=== PATIENT | female | born 1940 | race Caucasian/White ===

== ENCOUNTER 2018-03-23 08:07 | Day surgery (SDC) | payer MEDICARE, OTHER ==
[~2018-03-23] VITALS: Ht 167.6 cm; Wt 79.8 kg
[~2018-03-23 08:07] MED LIST: ADVIL200 MG PO; COZAAR25 MG PO; LIPITOR10 MG PO; MAXZIDE 37.5 MG-1 EA PO
[2018-03-23] MEDS ORDERED: VITAMIN D1000 UNIT PO (08:30)
--- NOTE | 2018-03-23 09:59 | NUR ---
03/23/18 0959 Felisa Leblanc 0953- PT ARRIVES TO PACU, DROWSY. EASILY [place]OU[place] TO VOICE. DENIES ANY PAIN OR NAUSEA. PT INSTANTLY BACK TO SLEEP WHEN NOT TALKING WITH STAFF.
--- NOTE | 2018-03-24 10:03 | OR ---
[facility] [address] [place], [place] [address] Signed DATE OF OPERATION: 03/23/2018 SURGEON: Adithya Jackson MD PREOPERATIVE DIAGNOSIS: History of tubular adenoma of cecum, 2013. POSTOPERATIVE DIAGNOSES: 1. No evidence of recurrent polyps. 2. Diverticulosis of sigmoid and left colon.. PROCEDURE: Total colonoscopy to cecum. ANESTHESIA: Intravenous sedation, fentanyl 100 mcg, Versed 5 mg. INDICATION: This 77-year-old white woman is a patient of Dr. Villar and has history of tubular adenoma resected from the cecum in 2013. She is currently asymptomatic regarding the colon. She has no family history of colon cancer. She is admitted to undergo colonoscopy. She understands the risks of bleeding, infection, and perforation. FINDINGS: The prep was excellent. Complete colonoscopy was undertaken to the cecum without question. There was no sign of recurrent polyp or new polyp. She had numerous diverticula both small and large of the sigmoid and left colon. DESCRIPTION OF PROCEDURE: The patient was brought to the endoscopy suite and placed in lateral decubitus position given intravenous sedation to the point of slurred speech and nystagmus. Digital rectal examination was normal. An Olympus video colonoscope was passed in the rectum and manipulated throughout the colon noting numerous large and small diverticula of the sigmoid and left colon. Scope was ultimately advanced to the cecum without problem. The ileocecal valve and appendiceal orifice were normal. The ileocecal valve showed no sign of abnormality and the cecum had no sign of polyp. The scope was carefully withdrawn from that point and examination throughout was undertaken showing no sign of abnormality other than the diverticula noted at initial passage of the scope. Retroflexed view of the rectum was Electronically Signed By: ADITHYA JACKSON MD 03/24/18 1003 PATIENT NAME: MAGDA PACK OPERATIVE REPORT DATE OF : 40 REPORT #: [id number] PHYSICIAN: ADITHYA JACKSON MD PCP: GUERRERO VILLAR MD REPORT IS CONFIDENTIAL AND NOT TO BE RELEASED WITHOUT AUTHORIZATION [facility] [address] [place], [place] [address] Signed normal. Scope was removed. The patient was taken to the recovery room in good condition. CONCLUDING DIAGNOSIS: Diverticulosis. No evidence of polyps. PLAN: Recommend repeat colonoscopy in 5 years based on previous polyps, sooner if clinically indicated. She will return to the ongoing care of Dr. Villar. Recommend high-fiber diet. MD NIRAJ Garibay/MODL /[id number] cc: Guerrero Villar MD Copies: GUERRERO VILLAR MD ~ Electronically Signed By: ADITHYA JACKSON MD 03/24/18 1003 PATIENT NAME: MAGDA PACK OPERATIVE REPORT DATE OF : 40 REPORT #: [id number] PHYSICIAN: ADITHYA JACKSON MD PCP: GUERRERO VILLAR MD REPORT IS CONFIDENTIAL AND NOT TO BE RELEASED WITHOUT AUTHORIZATION
== END 2018-03-23 10:34 | disposition home or self-care (01) ==
LOC: OPS 08:07 → DS 08:07 → OPS 09:00 → DS 09:00 → OPS 10:34
PROVIDERS: Surgery
PROC: 0DJD8ZZ Inspection of Lower Intestinal Tract, Via Natural or Artificial Opening Endoscopic (ICD-10-PCS; principal; 2018-03-23 09:00)
DX: Z12.11 Encounter for screening for malignant neoplasm of colon (principal); K57.30 Diverticulosis of large intestine without perforation or abscess without bleeding; I10 Essential (primary) hypertension; Z88.2 Allergy status to sulfonamides; Z88.8 Allergy status to other drugs, medicaments and biological substances; Z79.899 Other long term (current) drug therapy; Z86.010 Personal history of colon polyps
CPT/HCPCS: G0105; 99153; G0500; J2250; J3010; J7120

== ENCOUNTER 2020-05-16 07:18 | Emergency (ER) | payer MEDICARE, OTHER ==
[~2020-05-16] VITALS: Ht 167.6 cm; Wt 76.2 kg
[~2020-05-16 07:18] MED LIST changes: +VITAMIN D1000 UNIT PO
[2020-05-16] MEDS ORDERED: SERTRALINE HCL50 MG PO (07:34)
[2020-05-16] MEDS ORDERED: TRIAMTERENE-HC1 EAC3 PO (07:34)
== END 2020-05-16 10:19 | disposition home or self-care (01) ==
LOC: ED 07:18
DX: F32.9 Major depressive disorder, single episode, unspecified (principal); R63.0 Anorexia; G47.00 Insomnia, unspecified; E87.6 Hypokalemia; E83.42 Hypomagnesemia; I10 Essential (primary) hypertension; Z88.2 Allergy status to sulfonamides; Z88.8 Allergy status to other drugs, medicaments and biological substances; Z79.899 Other long term (current) drug therapy
CPT/HCPCS: 80053; 82652; 83735; 85025; 96361; 96374; 99284-25; J7030

== ENCOUNTER 2020-06-11 10:56 | Day surgery (SDC) | payer MEDICARE, OTHER ==
[~2020-06-11] VITALS: Ht 167.6 cm; Wt 77.0 kg
--- NOTE | ~2020-06-11 | OR ---
[facility] [address] [place], [place] [address] Draft DATE OF OPERATION: 06/11/2020 SURGEON: Adithya Jackson MD PREOPERATIVE DIAGNOSES: Poor appetite, history of nausea, vomiting, now improved with steroids. POSTOPERATIVE DIAGNOSES: Mild diffuse gastritis, small hiatal hernia, no evidence of ulcer or neoplasm. PROCEDURE: Esophagogastroduodenoscopy with biopsy. ANESTHESIA: Intravenous sedation, fentanyl 100 mcg and Versed 3 mg. INDICATION: This 80-year-old white woman is a patient of Dr. Villar, seen by me on May 25, 2020 for weight loss and other problems of fatigue and inanition. In January, her appetite began to decrease for reasons that were unclear. She has had generalized weakness of uncertain etiology. She was thought to have depression initially and Zoloft was prescribed without improvement. She has had no dysphagia or abdominal pain particularly and denies bloating or postprandial fullness. She does still have gallbladder and does have biliary disease in a maternal aunt, who required cholecystectomy. She has recently been given steroids, which has increased her appetite quite markedly and she feels actually quite a bit better now. She understands the risks of upper endoscopy including, but not limited to bleeding, infection, and perforation, and wished to proceed. FINDINGS: The esophagus itself was normal. There was a poor flap valve however. She had flecks of dried blood within the stomach, but no actual ulceration seen. There was mild diffuse gastritis. The pylorus was normal as was the duodenum, although biopsies were obtained. CLOtest biopsy was negative at 15 minutes postprocedure. There were no other findings of concern. DESCRIPTION OF PROCEDURE: The patient was brought to the endoscopy suite and given topical Hurricaine spray hypopharyngeal anesthesia and placed in lateral decubitus position. She was given intravenous sedation to the point of slurred speech and nystagmus with full PATIENT NAME: MAGDA PACK OPERATIVE REPORT DATE OF : 40 REPORT #: [id number] PHYSICIAN: ADITHYA JACKSON MD PCP: GUERRERO VILLAR MD REPORT IS CONFIDENTIAL AND NOT TO BE RELEASED WITHOUT AUTHORIZATION [facility] [address] [place], [place] [address] Draft cardiopulmonary monitoring. A bite block was placed. An Olympus video upper endoscope was passed in the hypopharynx. The vocal cords appeared normal. Scope was advanced into the esophagus, throughout its length it was normal. There was no sign of Ashby's epithelium or neoplasm or varices. The scope was advanced to the stomach, which was insufflated with air. Immediately noted were multiple flecks of what appeared to be blood, not fresh and certainly not clots, but inflammation of the stomach generally. Antrum was similarly affected. The pylorus was normal and scope was passed through into the duodenum. The 3rd and 2nd bulbar portions appeared reasonably normal. Biopsies were obtained to assess for celiac disease. The scope was withdrawn and biopsy was then taken of the antrum for both RONALD and pathologic testing. Retroflex view was undertaken showing an effaced flap valve. The scope was withdrawn to the distal esophagus and biopsies were obtained there. Midesophageal biopsies were also obtained. The scope was then withdrawn and removed. The patient was taken to the recovery room in good condition. CONCLUDING DIAGNOSIS: The patient has a poor flap valve, but no clinical symptoms of reflux esophagitis. There was mild inflammation of the stomach, but no sign of ulcer and no neoplasm. We would recommend side of protection of the stomach while on steroids, either PPI, H2 ghulam or Carafate. She will return to the ongoing care of Dr. Villar at this point. If her symptoms should persist or recur, consideration might be made for biliary evaluation for atypical biliary colic symptoms. MD NIRAJ Garibay/KATIAL /[id number] cc: Guerrero Villar MD Copies: GUERRERO VILLAR MD ~ PATIENT NAME: MAGDA PACK OPERATIVE REPORT DATE OF : 40 REPORT #: [id number] PHYSICIAN: ADITHYA JACKSON MD PCP: GUERRERO VILLAR MD REPORT IS CONFIDENTIAL AND NOT TO BE RELEASED WITHOUT AUTHORIZATION
[~2020-06-11 10:56] MED LIST changes: +OCUFLOX5 ML OPTH; +PREDNISOLONE ACE5 M1 OP; +SERTRALINE HCL50 MG PO; +TRIAMTERENE-HC1 EAC3 PO
--- NOTE | 2020-06-11 12:50 | NUR ---
06/11/20 1250 Sheets,[place] 1247 PT ARRIVED TO PACU ON 2L VIA NC, PT WAKES EASILY AND DENIES PAIN AND NAUSEA. PT RESTING IN BED WITH EYES CLSOED. VSS. 1249 O2 TURNED OFF, O2 SAT 100%.
--- NOTE | 2020-06-12 11:11 | PATH ---
[facility] [place] [facility] [address] [place], [place] [address] Signed SPECIMEN(S): A DUODENUM SPECIMEN(S): B DUODENUM BULB SPECIMEN(S): C ANTRUM/PYLORUS SPECIMEN(S): D LOWER ESOPHAGUS SPECIMEN(S): E MIDDLE ESOPHAGUS SPECIMEN SOURCE: A. DUODENUM B. DUODENUM BULB C. ANTRUM/PYLORUS D. LOWER ESOPHAGUS E. MIDDLE ESOPHAGUS CLINICAL HISTORY: Anorexia, weight loss. Postop: Small hiatal hernia and gastritis. MICROSCOPIC DESCRIPTION: Histologic sections of all submitted blocks are examined by light microscopy. These findings, together with the gross examination, support the pathologic diagnosis. FINAL PATHOLOGIC DIAGNOSIS: A. Duodenum, biopsy: - Duodenal mucosa with no histopathologic abnormality. - Negative for intraepithelial lymphocytes. - Negative for dysplasia or malignancy. B. Duodenum, bulb, biopsy: - Gastroduodenal transition mucosa with mild reactive changes and chronic gastritis. - Negative for dysplasia or malignancy. C. Stomach, antrum/pylorus, biopsy: - Oxyntic mucosa with mild mucosal capillary congestion. - Negative for Helicobacter organisms on HE stain. - Negative for dysplasia or malignancy. D. Esophagus, lower, biopsy: - Squamous mucosa with mild chronic inflammation and reactive epithelial changes, consistent with reflux esophagitis. - Negative for intestinal metaplasia, dysplasia, or malignancy. E. Esophagus, middle, biopsy: - Squamous mucosa with no histopathologic abnormality. - Negative for intestinal metaplasia, dysplasia, or malignancy. NAL:cml:[id number] PATIENT NAME: MAGDA PACK JAMIE PATHOLOGY DATE OF : 40 REPORT #: [id number] PHYSICIAN: GELA GUY PCP: SARAHI CHAMORRO MD REPORT IS CONFIDENTIAL AND NOT TO BE RELEASED WITHOUT AUTHORIZATION [facility] [place] [facility] [address] [place], [place] [address] Signed GROSS DESCRIPTION: Five specimens are received in five containers, labeled "DK." A. The specimen, labeled "DK, duodenal biopsy," is received in formalin and consists of two borges soft tissue fragments that measure 0.1-0.2 cm in greatest dimension. The specimen is entirely submitted in cassette (A1). B. The specimen, labeled "DK, duodenal bulb biopsy," is received in formalin and consists of two borges soft tissue fragments that measure 0.2 cm in greatest dimension. The specimen is entirely submitted in cassette (B1). C. The specimen, labeled "DK, antrum biopsy," is received in formalin and consists of two borges soft tissue fragments that measure 0.1-0.2 cm in greatest dimension. The specimen is entirely submitted in cassette (C1). D. The specimen, labeled "DK, lower esophagus biopsy," is received in formalin and consists of one borges soft tissue fragment that measures 0.2 cm in greatest dimension. The specimen is entirely submitted in cassette (D1). E. The specimen, labeled "DK, middle esophagus biopsy," is received in formalin and consists of two borges soft tissue fragments that measure 0.1-0.2 cm in greatest dimension. The specimen is entirely submitted in cassette (E1). JS (under the direct supervision of a pathologist) The Gross Description was prepared using a voice recognition system. The report was reviewed for accuracy; however, sound-alike word errors, addition and/or deletions may occur. If there is any question about this report, please contact Client Services. PERFORMING LABORATORY: The technical component was performed by [facility], [address] [place] [id number] (Bomb Squad Officer: Fidelia De La Torre MD; CLIA# [id number]). Professional interpretation was performed by [facility], [address] [place], [place] [address] (CLIA# [id number]). Diagnostician: Angela Huitron MD Pathologist Electronically Signed 06/12/2020 PATIENT NAME: MAGDA PACK JAMIE PATHOLOGY DATE OF : 40 REPORT #: [id number] PHYSICIAN: GELA PATHOLOGY PCP: SARAHI CHAMORRO MD REPORT IS CONFIDENTIAL AND NOT TO BE RELEASED WITHOUT AUTHORIZATION [facility] [place] [facility] [address] [facility] [place], [place] [address] Signed Copies: ~ PATIENT NAME: MAGDA PACK JAMIE PATHOLOGY DATE OF : 40 REPORT #: [id number] PHYSICIAN: INCYTE PATHOLOGY PCP: SARAHI CHAMORRO MD REPORT IS CONFIDENTIAL AND NOT TO BE RELEASED WITHOUT AUTHORIZATION
== END 2020-06-11 13:25 | disposition home or self-care (01) ==
LOC: OPS 10:56 → DS 11:00 → OPS 12:00 → DS 13:00 → OPS 13:25
PROVIDERS: ATTEND Surgery
PROC: 0DB78ZZ Excision of Stomach, Pylorus, Via Natural or Artificial Opening Endoscopic (ICD-10-PCS; 2020-06-11)
PROC: 0DB28ZX Excision of Middle Esophagus, Via Natural or Artificial Opening Endoscopic, Diagnostic (ICD-10-PCS; 2020-06-11)
PROC: 0DB38ZX Excision of Lower Esophagus, Via Natural or Artificial Opening Endoscopic, Diagnostic (ICD-10-PCS; 2020-06-11)
PROC: 0DB98ZX Excision of Duodenum, Via Natural or Artificial Opening Endoscopic, Diagnostic (ICD-10-PCS; principal; 2020-06-11 12:00)
DX: K29.50 Unspecified chronic gastritis without bleeding (principal); K20.90 Esophagitis, unspecified without bleeding; K44.9 Diaphragmatic hernia without obstruction or gangrene; I12.9 Hypertensive chronic kidney disease with stage 1 through stage 4 chronic kidney disease, or unspecified chronic kidney disease; N18.31 Chronic kidney disease, stage 3a; R63.4 Abnormal weight loss; F32.9 Major depressive disorder, single episode, unspecified; Z88.2 Allergy status to sulfonamides; Z88.8 Allergy status to other drugs, medicaments and biological substances; Z79.899 Other long term (current) drug therapy; Z86.010 Personal history of colon polyps; Z68.26 Body mass index [BMI] 26.0-26.9, adult
CPT/HCPCS: 99153; G0500; J2250; J3010; J7121